=== PATIENT | female | born 1975 | race Caucasian/White ===

== ENCOUNTER 2022-04-29 08:06 | Day surgery (SDC) | payer OTHER ==
[~2022-04-29] VITALS: Ht 137.2 cm; Wt 54.9 kg
[~2022-04-29 08:06] MED LIST: HYDROmorphone 2 MG TAB ONE; METOCLOPRAMIDE 10 MG/2 ML INJ VIAL ONE; MIDAZOLAM 2 MG/2 ML VIAL ONE; OXYTOCIN 10 UNITS/ML VIAL ONE; PROPOFOL 200 MG/20 ML VIAL IV ONE; ROCURONIUM 50 MG/5 ML VIAL IV ONE; SEVOFLURANE 250 ML BTL INH ONE
[2022-04-29] MEDS ORDERED: BUPIVACAINE-MPF/EPI 0.25% 10 ML VIAL INJ ONE (09:26)
[2022-04-29] MEDS ORDERED: LIDOCAINE 1% 500 MG/50 ML VIAL ONE (09:26)
[2022-04-29] MEDS ORDERED: HYDROmorphone PFS 2 MG/ML SYR ONE (09:28)
[2022-04-29] MEDS ORDERED: PROPOFOL 200 MG/20 ML VIAL IV ONE (09:28)
[2022-04-29] MEDS ORDERED: MIDAZOLAM 2 MG/2 ML VIAL ONE (09:28)
[2022-04-29] MEDS ORDERED: ROCURONIUM 50 MG/5 ML VIAL IV ONE (09:31)
[2022-04-29] MEDS ORDERED: ONDANSETRON 4 MG/2 ML VIAL ONE (10:04)
[2022-04-29] MEDS ORDERED: DEXAMETHASONE 4 MG/ML VIAL ONE (10:04)
[2022-04-29] MEDS ORDERED: NEOSTIGMINE 1:1000 10 MG/10 ML VIAL ONE (10:34)
[2022-04-29] MEDS ORDERED: GLYCOPYRROLATE 0.2 MG/ML VIAL ONE ×2 (10:34)
[2022-04-29] MEDS ORDERED: SODIUM 10 ML ONE (10:42)
[2022-04-29] MEDS ORDERED: PHENYLEPHRINE 10 MG/ML VIAL ONE (10:42)
[2022-04-29] MEDS ORDERED: HYDROcodone/APAP 5/325 MG 1 TAB TAB PO PRN (11:05)
[2022-04-29] MEDS ORDERED: HYDROmorphone 1 MG/ML AMP IVP PRN ×2 (11:05→11:10)
[2022-04-29] MEDS ORDERED: MORPHINE SULFATE 2 MG/ML SYR IVP PRN (11:05)
[2022-04-29] MEDS ORDERED: MORPHINE SULFATE 4 MG/ML SYR IV PRN (11:05)
[2022-04-29] MEDS ORDERED: ONDANSETRON 4 MG/2 ML VIAL IV PRN (11:05)
[2022-04-29] MEDS ORDERED: MEPERIDINE 25 MG/ML SYR IVP PRN (11:10)
[2022-04-29] MEDS ORDERED: ONDANSETRON 4 MG/2 ML VIAL IVP PRN (11:10)
[2022-04-29] MEDS ORDERED: diphenhydrAMINE 50 MG/ML VIAL IVP PRN (11:10)
== END 2022-04-29 11:33 | disposition home or self-care (01) ==
LOC: MDS 08:06 → MMU 08:07 → MDS 11:33
PROVIDERS: ATTEND Surgery
DX: K80.10 Calculus of gallbladder with chronic cholecystitis without obstruction (principal); E03.9 Hypothyroidism, unspecified; Z20.822 Contact with and (suspected) exposure to COVID-19
CPT/HCPCS: 36415; 47562; 71046; 82374; 86886; 86900; 86901; 87426; 88304; 93005; J0690; J1100; J1170; J2001; J2250; J2370; J2405; J2590; J2704; J2710; J2765; J3490; J7030; J7060; J7120